=== PATIENT | male | born 1940 | race Caucasian/White ===

== ENCOUNTER 2017-05-20 13:21 | Emergency (ER) | payer MEDICARE, OTHER ==
[~2017-05-20] VITALS: Ht 182.9 cm; Wt 147.4 kg
[~2017-05-20 13:21] MED LIST: FLOMAX0.4 MG PO; GLIMEPIRIDE2 MG PO; LISINOPRIL-HCT1 EACH PO; LOVASTATIN40 MG PO; METFORMIN PO; NOVOLIN SQ; NYSTATIN1 EAC1 TOP
--- OUTSIDE RECORDS SUMMARY | 2017-05-20 13:24 | XMS REPORT | Clinical Summary ---
Author Author [facility] Organization [facility] Address Unknown Phone Unavailable Care Team Providers Care Supervisor [employer] Name Role Phone Mayuri Balbuena MD PCP Allergies Active Allergy Reactions Severity Noted Date Comments Meperidine Rash Low 05/13/2016 Cephalexin Rash Low 05/13/2016 Pentazocine Lactate Rash Low 05/13/2016 Current Medications Prescription Sig. Disp. Refills Start End Date Status Date glimepiride (AMARYL) 4 MG Take 4 mg by mouth 2 Active tablet (two) times a day. LISINOPRIL-HCTZ 20-12.5 1 tablet daily. Active MG COMBO DOSE lovastatin (MEVACOR) 10 Take 40 mg by mouth Active MG tablet nightly. esomeprazole (NexIUM) 20 Take 20 mg by mouth daily Active MG capsule before breakfast. tamsulosin (FLOMAX) 0.4 Take 0.4 mg by mouth Active mg capsule,extended daily. release 24hr Active Problems No known active problems Family History Medical History Relation Name Comments Melanoma Father Leukemia Mother Relation Name Status Comments Father Mother Social History Tobacco Use Types Packs/Day Years Used Date Never Smoker Alcohol Use Drinks/Week oz/Week Comments No Sex Assigned at Date Recorded Not on file Last Filed Vital Signs Not on file Plan of Treatment Health Maintenance Due Date Last Done Comments COLONOSCOPY 11/27/1991 ZOSTER VACCINE 2001 PNEUMOCOCCAL 2006 POLYSACCHARIDE VACCINE AGE 65 AND OVER PNEUMOCOCCAL-13 2006 INFLUENZA VACCINE 09/28/2016 Implants Implanted Type Area Adult Nurse Practitioner Device Expiration Model / Identifier Date Serial / Lot Device Vasclr Clsr Baln Cath 10ml Cardiovasc Right: CARDINAL 2017 [id number] / Lkng Syr 6fr 7fr Mynxgrip - ular Foot [facility] / [id number] Implants [id number] Implanted: Qty: 1 on 05/17/2016 by Hector Pagan MD [employer] [facility] Floseal 10ml W/ Humn Human Left: POTTER 05/28/2017 [id number] / F2 - [id number] Tissue Groin BIOSCIENCE / Implanted: Qty: 1 on 05/17/2016 Implants [id number] Microsphere Emblztn Promoting Surgical Right: [facility] 2017 [id number] / Efficacy 300-500um Embosphere - Implants; [employer] / [id number] Expanders; [id number] Implanted: Qty: 1 on 05/17/2016 by Extenders; Hector Pagan MD Surgical Wires Coil Emblztn Ngocdo Pltnm 0.035in Vascular Right: COOK PERIPHERAL [id number] / 8.2cm 8x5mm Strl - [id number] Coil Foot INTERVENTION / Implanted: Qty: 1 on 05/17/2016 by [id number] Hector Pagan MD Results Not on fileafter 05/19/2016 Insurance Payer Benefit Subscriber ID Type Phone Address Plan / Group MEDICARE [employer] MEDICARE xxxxxxxxxx Medicare [facility] xxxxxxxxx HMO/PPO THCARE CHOICE/CHO ICE +
[2017-05-20] MEDS ORDERED: SODIUM CHLORIDE 0.9% 1000ML 1,000 ML IV STA (14:11)
[2017-05-20] MEDS ORDERED: LEVOFLOXACIN 500MG/D5W 100ML 100 ML IV STA (14:11)
[2017-05-20] MEDS ORDERED: VANCOMYCIN 1GM/NS 250 ML 250 ML IV STA (14:11)
[2017-05-20] MEDS ORDERED: FAMOTIDINE 20 MG/2 ML VIAL IV STA (14:11)
[2017-05-20] MEDS ORDERED: TETANUS/DIPHTHERIA TOX ADULT 0.5 ML SYR IM ONE (14:15)
[2017-05-20 14:39] LABS: BASOPHILS # (AUTO) 0.1 (0.0-0.1); BASOPHILS % 0.8 % (0.0-1.0); EOSINOPHILS # (AUTO) 0.2 (0.0-0.4); EOSINOPHILS % 2.3 % (0.0-6.0); HEMATOCRIT 39.7 % (38.2-49.6); HEMOGLOBIN 13.7 g/dL (14.0-18.0); LYMPHOCYTES # (AUTO) 0.8 (1.0-3.2); LYMPHOCYTES % 10.6 % (18.0-39.1); MEAN CORPUSCULAR HEMOGLOBIN 29.1 pg (28-32); MEAN CORPUSCULAR HGB CONC 34.5 g/dL (31-35); MEAN CORPUSCULAR VOLUME 84.3 fL (81-99); MONOCYTES # (AUTO) 0.9 (0.2-0.8); MONOCYTES % 10.9 % (4.4-11.3); NEUTROPHILS % 75.1 % (38.7-80.0); PLATELET COUNT 201 x10e3/uL (140-360); RED BLOOD COUNT 4.71 x10e6/uL (4.3-5.7); RED CELL DISTRIBUTION WIDTH 13.4 % (11.7-14.4)
[2017-05-20 14:50] LABS: INR 0.99; PROTHROMBIN TIME 12.3 seconds (11.9-14.5)
[2017-05-20 14:51] LABS: PARTIAL THROMBOPLASTIN TIME 36.5 seconds (23.8-35.5)
[2017-05-20 14:57] LABS: ALANINE AMINOTRANSFERASE 19 IU/L (0-55); ALBUMIN 3.7 g/dL (3.5-5.0); ALBUMIN/GLOBULIN RATIO 1.2 (0.8-2.0); ALKALINE PHOSPHATASE 41 IU/L (40-150); ANION GAP 11.1 mmol/L (8-16); BLOOD UREA NITROGEN 15 mg/dL (7-26); BUN/CREATININE RATIO 14 (6-25); CALCIUM 9.1 mg/dL (8.4-10.2); CARBON DIOXIDE 27 mmol/L (22-29); CHLORIDE 101 mmol/L (98-107); CREATININE, SERUM 1.04 mg/dL (0.72-1.25); EST GLOMERULAR FILTRATION RATE > 60 ML/MIN (60-); GLUCOSE 202 mg/dL (74-118); POTASSIUM 4.1 mmol/L (3.5-5.1); SODIUM 135 mmol/L (136-145)
[2017-05-20 14:59] LABS: CREATINE KINASE 72 IU/L (30-200)
--- NOTE | 2017-05-20 15:02 | Diagnostic Imaging Report ---
PROCEDURE: A single AP view of the chest. COMPARISON: None. INDICATIONS: SECOND TOE TURNING BLUE FINDINGS: Lines/tubes: None. Lungs: The lungs are well inflated. Linear atelectasis or scarring in the lung bases. There is no evidence of pneumonia or pulmonary edema. Pleura: There is no pleural effusion or pneumothorax. Heart and mediastinum: The heart and the mediastinum are unremarkable. Bones: No acute bony abnormality. IMPRESSION: No acute cardiopulmonary disease. Dictated by: Akbar Avendaño M.D. on 05/20/2017 at 15:02 Electronically approved by: Akbar Avendaño M.D. on 05/20/2017 at 15:02
--- NOTE | 2017-05-20 15:05 | Diagnostic Imaging Report ---
PROCEDURE:X-RAY LEFT FOOT, COMPLETE COMPARISON:None. INDICATIONS:SECOND TOE TURNING BLUE FINDINGS: There are no fractures, dislocations, lytic or blastic lesions. Punctate calcific densities medial to the first metatarsal phalangeal joint with adjacent well corticated cortical irregularity may be related to gout. Plantar calcaneal spur. Scattered degenerative changes of the feet. The bones are well-mineralized. Diffuse vascular calcifications. CONCLUSION: 1. No acute bony abnormalities. 2. Punctate calcific densities medial to the first MTP joint with adjacent cortical irregularities may be related to gout. Clinical correlation recommended. 3. Diffuse vascular calcifications. Dictated by: Akbar Avendaño M.D. on 05/20/2017 at 15:05 Electronically approved by: Akbar Avendaño M.D. on 05/20/2017 at 15:05
[2017-05-20 15:38] LABS: BILIRUBIN,URINE NEGATIVE (NEGATIVE); CLARITY,URINE CLEAR (CLEAR); COLOR,URINE YELLOW (YELLOW); KETONES,URINE NEGATIVE (NEGATIVE); LEUKOCYTE ESTERASE ,URINE NEGATIVE (NEGATIVE); NITRITE,URINE NEGATIVE (NEGATIVE); PROTEIN,URINE DIPSTICK NEGATIVE (NEGATIVE); URINE UROBILINOGEN 0.2 mg/dL (0.2 - 1)
[2017-05-20 15:49] LABS: EPITHELIAL CELLS,URINE RARE /LPF; RBC,URINE 0-5 /HPF (0-5); WBC,URINE (MAN) 0-5 /HPF (0-5)
[2017-05-20 15:50] LABS: MUCUS,URINE MANY (RARE)
[2017-05-20] MEDS ORDERED: TRIMETHOPRIM/SULFAMETHOXAZOLE 160-800 MG TAB PO ONE (16:00)
== END 2017-05-20 16:20 | disposition home or self-care (01) ==
LOC: ER 13:21
DX: S90.122A Contusion of left lesser toe(s) without damage to nail, initial encounter (principal); E11.65 Type 2 diabetes mellitus with hyperglycemia
CPT/HCPCS: 36415; 71045; 80053; 81001; 82550; 82553; 83605; 83735; 84484; 85025; 85610; 85651; 85730; 87040; 90714; 93005; 99284; J1956; J3370; J7030

== ENCOUNTER 2018-12-26 11:59 | Emergency (ER) | payer MEDICARE, OTHER ==
[~2018-12-26] VITALS: Ht 182.9 cm; Wt 147.4 kg
[~2018-12-26 11:59] MED LIST changes: +HUMULIN N100 UNITS/ SC; +NEXIUM40 M1 PO
[2018-12-26 14:11] LABS: BILIRUBIN,URINE SMALL (NEGATIVE); CLARITY,URINE CLOUDY (CLEAR); COLOR,URINE YELLOW (YELLOW); KETONES,URINE NEGATIVE (NEGATIVE); LEUKOCYTE ESTERASE ,URINE SMALL (NEGATIVE); NITRITE,URINE NEGATIVE (NEGATIVE); PROTEIN,URINE DIPSTICK 2+ (NEGATIVE); URINE UROBILINOGEN 0.2 mg/dL (0.2 - 1)
[2018-12-26 14:33] LABS: BACTERIA,URINE FEW /HPF; RBC,URINE 21-50 /HPF (0-5); WBC,URINE (MAN) 0-5 /HPF (0-5)
[2018-12-26] MEDS ORDERED: LEVAQUIN500 MG PO (15:11)
== END 2018-12-26 15:43 | disposition home or self-care (01) ==
LOC: ER 11:59
DX: R33.9 Retention of urine, unspecified (principal); N39.0 Urinary tract infection, site not specified; I10 Essential (primary) hypertension; E11.9 Type 2 diabetes mellitus without complications; E78.5 Hyperlipidemia, unspecified; K21.9 Gastro-esophageal reflux disease without esophagitis
CPT/HCPCS: 51700; 81001; 87086; 99282

== ENCOUNTER → 2019-01-12 | Outpatient (CLI) | payer MEDICARE, OTHER ==
[~2019-01-12] MED LIST changes: +IOPAMIDOL 370 MG/ML 200 ML INFUS..BTL INJ ONE; +LEVAQUIN500 MG PO; +SODIUM CHLORIDE 0.9% 50ML 50 ML ONE
[2019-01-12 09:29] LABS: BLOOD UREA NITROGEN 9 mg/dL (7-26); BUN/CREATININE RATIO 10 (6-25); CREATININE, SERUM 0.91 mg/dL (0.72-1.25); EST GLOMERULAR FILTRATION RATE > 60 ML/MIN (60-)
--- NOTE | 2019-01-12 10:43 | Diagnostic Imaging Report ---
EXAM: CT Abdomen and Pelvis WITH intravenous contrast INDICATION: Prostate cancer COMPARISON: None. TECHNIQUE: Abdomen and pelvis were scanned utilizing a multidetector helical scanner from the lung base to the pubic symphysis after administration of IV contrast. Coronal and sagittal reformations were obtained. Routine protocol was performed. Scan was performed during portal venous phase. IV CONTRAST: 100mL of Isovue 370 ORAL CONTRAST: Water RADIATION DOSE: Total DLP: 1403.8 mGy*cm Dose modulation, iterative reconstruction, and/or weight based adjustment of the mA/kV was utilized to reduce the radiation dose to as low as reasonably achievable. FINDINGS: LOWER THORAX: No focal lung base consolidation. 6 mm right lower lobe pulmonary nodule (series 2 image 17). Bibasilar subpleural nodularity, likely reflecting mild bibasilar dependent subsegmental atelectasis. Atherosclerotic coronary artery calcifications. HEPATOBILIARY: Tiny subcentimeter hypodensities at the hepatic dome are too small to adequately characterize. No other focal liver lesion. No biliary ductal dilation. Gallbladder appears unremarkable. SPLEEN: No splenomegaly. PANCREAS: No focal masses or ductal dilatation. ADRENALS: No adrenal nodules. KIDNEYS/URETERS: No hydronephrosis, stones, or solid mass lesions. Simple left renal cysts measure up to 2.2 cm. PELVIC ORGANS/BLADDER: Status post TURP. Prostate measures up to 6.2 cm diameter. PERITONEUM / RETROPERITONEUM: No free air or fluid. LYMPH NODES: No lymphadenopathy. VESSELS: Moderate atherosclerotic calcifications of the nonaneurysmal abdominal aorta and major branches. GI TRACT: No abnormal bowel thickening. No bowel obstruction. Normal appendix. BONES AND SOFT TISSUES: No acute osseous injury. Diffuse osteopenia. Moderate multilevel degenerative changes of the visualized spine. No suspicious lytic or blastic lesions. IMPRESSION: Prostatomegaly. Status post TURP. 6 mm right lower lobe pulmonary nodule. Recommend dedicated chest CT for assessment for further pulmonary nodules given history of malignancy. Atherosclerotic arterial calcifications including of the coronary arteries. Signed by: Lul Navarro MD on 01/12/2019 10:40 AM
--- NOTE | 2019-01-12 19:57 | Diagnostic Imaging Report ---
Bone Scan, delayed phase INDICATION: C61: Malignant neoplasm of prostate. Staging evaluation. COMPARISON: CT abdo/pelvis 01/12/2019 REPORT: Approximately 3 hours following intravenous administration of 27.5 mCi of Tc-99m MDP, delayed total body images in the anterior and posterior projections and selected spot images were obtained. Degenerative changes are noted in the mid to lower thoracic spine, knees and left ankle. Otherwise, distribution of tracer activity is unremarkable throughout the skeletal system. No abnormal accumulation of tracer is seen in the soft tissues or urinary tract. IMPRESSION: No scan evidence of metastatic bone disease. Signed by: Dr. Aliza Rushing M.D. on 01/12/2019 7:53 PM
== END ==
LOC: NM 07:57
PROVIDERS: ATTEND Urology
DX: C61 Malignant neoplasm of prostate (principal)
CPT/HCPCS: 36415; 74177; 78306; 82565; 84520; A9503; Q9967

== ENCOUNTER 2019-04-25 06:04 | Inpatient (IN) | payer MEDICARE, OTHER ==
[2019-04-19 11:08] LABS: BASOPHILS # (AUTO) 0.1 (0.0-0.1); BASOPHILS % 0.7 % (0.0-1.0); EOSINOPHILS # (AUTO) 0.1 (0.0-0.4); EOSINOPHILS % 1.3 % (0.0-6.0); HEMATOCRIT 39.2 % (38.2-49.6); HEMOGLOBIN 13.2 g/dL (14.0-18.0); LYMPHOCYTES # (AUTO) 0.8 (1.0-3.2); LYMPHOCYTES % 12.2 % (18.0-39.1); MEAN CORPUSCULAR HGB CONC 33.7 g/dL (31-35); MEAN CORPUSCULAR VOLUME 86.2 fL (81-99); MONOCYTES # (AUTO) 0.7 (0.2-0.8); NEUTROPHILS # (AUTO) 5.2 (2.1-6.9); NEUTROPHILS % 75.5 % (38.7-80.0); PLATELET COUNT 213 x10e3/uL (140-360); RED BLOOD COUNT 4.55 x10e6/uL (4.3-5.7); RED CELL DISTRIBUTION WIDTH 13.1 % (11.7-14.4)
[2019-04-19 11:23] LABS: ANION GAP 12.1 mmol/L (8-16); BLOOD UREA NITROGEN 13 mg/dL (7-26); BUN/CREATININE RATIO 14 (6-25); CALCIUM 9.1 mg/dL (8.4-10.2); CARBON DIOXIDE 28 mmol/L (22-29); CHLORIDE 103 mmol/L (98-107); CREATININE, SERUM 0.94 mg/dL (0.72-1.25); EST GLOMERULAR FILTRATION RATE > 60 ML/MIN (60-); GLUCOSE 203 mg/dL (74-118); POTASSIUM 4.1 mmol/L (3.5-5.1); SODIUM 139 mmol/L (136-145)
--- NOTE | 2019-04-19 11:43 | Diagnostic Imaging Report ---
Exam: PA and lateral chest radiograph Clinical history preoperative clearance Findings: There is no evidence of pulmonary consolidation, pleural effusion, or pneumothorax. The cardiac size is within normal limits. The regional osseous structures are unremarkable. Signed by: Dr. Darren Vee MD on 04/19/2019 11:41 AM
[~2019-04-25] VITALS: Ht 180.3 cm; Wt 137.4 kg
[~2019-04-25 06:04] MED LIST changes: -IOPAMIDOL 370 MG/ML 200 ML INFUS..BTL INJ ONE; +OMEGA-3100 MG PO; -SODIUM CHLORIDE 0.9% 50ML 50 ML ONE
[2019-04-25] MEDS ORDERED: GENTAMICIN 80MG/NS 100 ML 200 ML IV ONE (06:27)
[2019-04-25] MEDS ORDERED: VANCOMYCIN 1GM/NS 250 ML 250 ML ONE (06:28)
[2019-04-25] MEDS ORDERED: IOPAMIDOL 300MG/ML 50ML INFUS..BTL IV ONE (06:59)
[2019-04-25] MEDS ORDERED: B&O 60MG R/S 60 MG SUPP PR ONE (06:59)
[2019-04-25] MEDS ORDERED: FENTANYL CITRATE/PF 100MCG/2 ML INJ ONE ×2 (08:55→20:02)
[2019-04-25] MEDS ORDERED: ACETAMINOPHEN 1000 MG/100 ML IV PRN (09:15)
[2019-04-25] MEDS ORDERED: DIPHENHYDRAMINE HCL 25 MG CAP PO PRN (09:15)
[2019-04-25] MEDS ORDERED: B&O 60MG R/S 60 MG SUPP PR PRN (09:15)
[2019-04-25] MEDS ORDERED: ACETAMINOPHEN/CODEINE 300MG - 30MG TAB PO PRN (09:15)
[2019-04-25] MEDS ORDERED: ONDANSETRON HCL INJ 2MG/ML 2ML 2 MG/ML VIAL IV PRN (09:15)
[2019-04-25 09:54] LABS: BASOPHILS % 0.6 % (0.0-1.0); EOSINOPHILS # (AUTO) 0.1 (0.0-0.4); EOSINOPHILS % 1.7 % (0.0-6.0); HEMATOCRIT 38.7 % (38.2-49.6); HEMOGLOBIN 13.2 g/dL (14.0-18.0); LYMPHOCYTES # (AUTO) 0.5 (1.0-3.2); LYMPHOCYTES % 9.6 % (18.0-39.1); MEAN CORPUSCULAR HEMOGLOBIN 29.7 pg (28-32); MEAN CORPUSCULAR HGB CONC 34.1 g/dL (31-35); MEAN CORPUSCULAR VOLUME 87.2 fL (81-99); MONOCYTES # (AUTO) 0.4 (0.2-0.8); MONOCYTES % 6.6 % (4.4-11.3); NEUTROPHILS # (AUTO) 4.3 (2.1-6.9); NEUTROPHILS % 81.1 % (38.7-80.0); PLATELET COUNT 173 x10e3/uL (140-360); RED BLOOD COUNT 4.44 x10e6/uL (4.3-5.7); RED CELL DISTRIBUTION WIDTH 13.3 % (11.7-14.4)
[2019-04-25 10:11] LABS: BLOOD UREA NITROGEN 13 mg/dL (7-26); BUN/CREATININE RATIO 15 (6-25); CALCIUM 8.4 mg/dL (8.4-10.2); CARBON DIOXIDE 26 mmol/L (22-29); CHLORIDE 108 mmol/L (98-107); CREATININE, SERUM 0.84 mg/dL (0.72-1.25); EST GLOMERULAR FILTRATION RATE > 60 ML/MIN (60-); GLUCOSE 135 mg/dL (74-118); SODIUM 143 mmol/L (136-145)
--- NOTE | 2019-04-25 11:18 | NUR ---
RECEIVED PATIENT FROM PACU. PATIENT A/O X3, EVEN RESPIRATIONS ON 2LNC. LUNG SOUNDS CLEAR. BOWEL SOUNDS PRESENT. BENNETT IN PLACE WITH CBI, URINE PALE STRAW. NORBERTO HOSE AND SCD'S IN PLACE. LEFT FA 20 GAUGE IV WITH IVF @ 100 CC/HR. PATIENT STATES PAIN IS 2/10 IN LOWER ABDOMEN. EDUCATED PATIENT ON PAIN MEDICATION AVAILABLE. [facility] BED LOW, WHEELS LOCKED, SIDE RAILS X2, CALL LIGHT IN REACH WILL CONTINUE TO MONITOR PATIENT.
[2019-04-25 11:30] VITALS: BP 166/72
[2019-04-25] MEDS ORDERED: SOD CHL 0.45%/POT CHL 20MEQ 1,000 ML IV SCH (12:00)
[2019-04-25] MEDS: PHENAZOPYRIDINE HCL 100 MG TAB PO SCH ×2 (12:14→17:05)
[2019-04-25 12:20] VITALS: BP 166/72
[2019-04-25 12:22] VITALS: BP 166/72
--- NOTE | 2019-04-25 14:36 | NUR ---
SPOKE WITH DR. ANSARI OK TO RESUME HOME MEDICATIONS. NOTIFIED DR. ANSARI THAT PATIENT WANTS TO TAKE HIS OWN INSULIN.
[2019-04-25 16:00] VITALS: BP 122/58
--- NOTE | 2019-04-25 16:23 | Operative Report ---
DATE OF PROCEDURE: 04/25/2019 SURGEON: Zafar Farley MD PREOPERATIVE DIAGNOSES: 1. Obstructive benign prostatic hyperplasia. 2. Secondary phimosis. 3. Urinary tract infections. POSTOPERATIVE DIAGNOSES: 1. Obstructive benign prostatic hyperplasia. 2. Secondary phimosis. 3. Urinary tract infections. 4. Distal urethral stricture. 5. Small filling defect in left mid pole calyx. OPERATIONS PERFORMED: 1. Manipulation of penile skin (separate procedure performed for the secondary phimosis in order to expose the entire glans penis). 2. Cystourethroscopy with calibration and dilation of distal urethral stricture (separate procedure performed for the diagnosis of stricture). 3. Cystourethroscopy with bilateral ureteral catheterization and retrograde ureteropyelography (separate procedure performed for the urinary tract infections). 4. Cystourethroscopy with transurethral resection of the prostate utilizing the PlasmaBand electrode (separate procedure performed for the obstructive benign prostatic hyperplasia). ANESTHESIA: General. COMPLICATIONS: None. CLINICAL SUMMARY: Jayesh Villfauerte is a 78-year-old man, who has the above preoperative diagnoses. The patient underwent a circumcision for severe phimosis and had a pathology result of balanitis xerotica obliterans. The patient has scarring of the tip of his penis and scarring of the previous circumcision incision, which is now healed. The patient's morbid obesity also pushes his penile shaft skin distally further exacerbating situation with the folding of the distal penile skin over the glans penis. The patient was diagnosed with prostate cancer and was given his first 6-month shot of Lupron in anticipation of this procedure. The plan is in 6 months following this procedure to proceed with radiotherapy for definitive management of his prostate cancer. The patient is aware of the risks of bleeding, infection, injury to adjacent structures, incontinence, impotence, retrograde ejaculation, need for additional procedures and elected to proceed. OPERATIVE PROCEDURE IN DETAIL: Informed consent was verified. Jayesh Villafuerte was properly identified, taken to the operating room, placed on the cystoscopy table in supine position. Anesthesia was uneventfully begun. The patient was then carefully gently repositioned in dorsal lithotomy position with all pressure points well padded. His genitalia were examined. The distal penile skin was folded to the midpoint of the glans penis. This resulted in secondary phimosis. Rather vigorous manipulation was required in order to flip this folded skin proximally, so that the entire corner of the glans penis could be exposed. The circumcision incision was intact, but there was definite scarring in the subcutaneous tissues under the incision and just proximal to the incision caused most likely by this folding as a result of the patient's morbid obesity pushing the skin forward. The patient's genitalia were prepared and draped in the usual sterile fashion. The 22.5-Burundian cystoscope sheath with a visual obturator in place was attempted to be placed in the patient's urethral meatus, the patient's distal urethra. Distal several centimeters urethra was obstructed. They were calibrated to approximately 16-Burundian in size and dilated to 30-Burundian in size with female sounds. We then easily able to place the cystoscope sheath into the patient's urethra. It was guided down the otherwise unremarkable urethra through the bulbar wide caliber band that is probably not clinically significant through normal sphincteric region through the prostate bed, which was significant for bilobar prostatic hypertrophy with visual obstruction. We entered the patient's bladder. Panendoscopy revealed no suspicious lesions. No stones. Grade 2 trabeculations were noted. An 8-Burundian catheter was used to cannulate each ureter and retrograde ureteropyelograms were performed. Interpretation of retrograde ureteropyelography contrast was instilled in retrograde fashion bilaterally. Ureteral tortuosity was present bilaterally as well as some ureteral spasms. There was no hydronephrosis. There were no suspicious lesions. There was a small filling defect in the left mid pole calyx and in the cephalad most mid pole calyx on the left hand side. Nevertheless, there was no hydronephrosis and unobstructed drainage was observed bilaterally fluoroscopically. The resectoscope was atraumatically placed with the obturator and we utilized the PlasmaBand electrode to resect the prostate from the bladder neck tube, but never passed the verumontanum and down the surgical capsule. Pinpoint electrocautery was utilized to achieve hemostasis. All chips were evacuated and verified visually. The 24-Burundian Villalobos catheter was then placed. It was placed on continuous irrigation with completely clear efflux. A belladonna and opium suppository were placed revealing a 40 g prostate that is smooth, non-fluctuant without any nodules. The patient was then uneventfully reversed from anesthesia and taken to recovery room in stable condition. There were no complications to the procedure. He tolerated the procedure well. We will admit the patient due to his diabetes, his urinary tract infections, the need for Villalobos catheter, his morbid obesity, and involved the patient's mgmt consultant in managing his medical problems. We will of course follow the patient up on an ongoing basis. Zafar MD Miguelito [place]/MODL /[id number] cc: Haile Balbuena MD
[2019-04-25] MEDS: DOCUSATE SODIUM 100 MG CAP PO SCH (16:36)
--- NOTE | 2019-04-25 17:00 | NUR ---
PATIENTS BLOOD SUGAR 254. PATIENT GAVE HIMSELF 75 UNITS OF INSULIN.
[2019-04-25] MEDS ORDERED: DEXAMETHASONE SOD PHOS INJ 4 MG/ML VIAL ONE (18:37)
[2019-04-25] MEDS ORDERED: ROCURONIUM BROMIDE 10 MG/ML 5ML VIAL ONE (18:37)
[2019-04-25] MEDS ORDERED: PROPOFOL IV EMULSION 10 MG/ML 20 ML VIAL ONE (18:37)
[2019-04-25] MEDS ORDERED: ONDANSETRON HCL INJ 2MG/ML 2ML 2 MG/ML VIAL ONE (18:37)
[2019-04-25] MEDS ORDERED: SUCCINYLCHOLINE CHLORIDE 20 MG/ML 10ML VIAL ONE (18:37)
[2019-04-25] MEDS ORDERED: SEVOFLURANE INHAL SOLN 250 ML PEN BTL ONE (18:37)
[2019-04-25] MEDS ORDERED: LIDOCAINE HCL 2% LOCAL INJ 5 ML SDV VIAL INJ ONE (18:37)
--- NOTE | 2019-04-25 19:15 | NUR ---
patient received awake, alert, lying quietly in bed. no c/o pain noted. cbi continues without difficulty. urine clear yellow at this time. iv site to left forearm swollen. ivf stopped until another iv is placed. pm assessment complete. call ram placed within reach. patient instructed to call for assistance when needed.
--- NOTE | 2019-04-25 20:00 | NUR ---
new iv #20 gauge placed to the left forearm x 1 stick. ivf resumed and infusing without difficulty.
[2019-04-25] MEDS ORDERED: SIMVASTATIN 40 MG TAB PO SCH (21:00)
[2019-04-25] MEDS ORDERED: SIMVASTATIN 20 MG TAB PO SCH (21:00)
[2019-04-25 21:13] VITALS: BP 143/65
[2019-04-25 21:32] VITALS: BP 143/65
[2019-04-25] MEDS ORDERED: NEBIVOLOL 10 MG TAB PO ONE (23:30)
[2019-04-25] MEDS ORDERED: HYDRALAZINE HCL 25 MG TAB PO PRN (23:30)
[2019-04-26] MEDS ORDERED: HYDRALAZINE HCL 25 MG TAB PO PRN (00:45)
[2019-04-26 01:35] VITALS: BP 136/64
--- NOTE | 2019-04-26 03:00 | NUR ---
cbi continues without difficulty. no c/o pain noted.
[2019-04-26 05:26] VITALS: BP 137/68
[2019-04-26 06:19] LABS: BASOPHILS % 0.2 % (0.0-1.0); EOSINOPHILS # (AUTO) 0.1 (0.0-0.4); EOSINOPHILS % 0.9 % (0.0-6.0); HEMATOCRIT 36.4 % (38.2-49.6); HEMOGLOBIN 11.9 g/dL (14.0-18.0); LYMPHOCYTES # (AUTO) 1.1 (1.0-3.2); LYMPHOCYTES % 12.5 % (18.0-39.1); MEAN CORPUSCULAR HGB CONC 32.7 g/dL (31-35); MEAN CORPUSCULAR VOLUME 88.6 fL (81-99); MONOCYTES # (AUTO) 0.9 (0.2-0.8); MONOCYTES % 10.8 % (4.4-11.3); NEUTROPHILS # (AUTO) 6.5 (2.1-6.9); NEUTROPHILS % 75.1 % (38.7-80.0); PLATELET COUNT 181 x10e3/uL (140-360); RED BLOOD COUNT 4.11 x10e6/uL (4.3-5.7); RED CELL DISTRIBUTION WIDTH 13.3 % (11.7-14.4)
[2019-04-26 06:47] LABS: ANION GAP 9.7 mmol/L (8-16); BLOOD UREA NITROGEN 11 mg/dL (7-26); BUN/CREATININE RATIO 14 (6-25); CALCIUM 8.5 mg/dL (8.4-10.2); CARBON DIOXIDE 27 mmol/L (22-29); CHLORIDE 103 mmol/L (98-107); CREATININE, SERUM 0.78 mg/dL (0.72-1.25); EST GLOMERULAR FILTRATION RATE > 60 ML/MIN (60-); GLUCOSE 105 mg/dL (74-118); POTASSIUM 3.7 mmol/L (3.5-5.1); SODIUM 136 mmol/L (136-145)
[2019-04-26] MEDS ORDERED: PANTOPRAZOLE SOD 40 MG TABEC PO SCH (07:30)
[2019-04-26 07:40] VITALS: BP 137/63
[2019-04-26] MEDS ORDERED: GLIMEPIRIDE 2 MG TAB PO SCH (08:00)
--- NOTE | 2019-04-26 08:00 | NUR ---
RECEIVED PATIENT RESTING IN BED NO S/S OF DISTRESS. BED LOW, WHEELS LOCKED, SIDE RAILS X2. CALL LIGHT IN REACH WILL CONTINUE TO MONITOR PATIENT.
[2019-04-26 08:37] VITALS: BP 137/63
[2019-04-26] MEDS: PHENAZOPYRIDINE HCL 100 MG TAB PO SCH (08:42)
[2019-04-26] MEDS: DOCUSATE SODIUM 100 MG CAP PO SCH (08:42)
[2019-04-26] MEDS ORDERED: HYDROCHLOROTHIAZIDE 25 MG TAB PO SCH (09:00)
[2019-04-26] MEDS ORDERED: NON-FORMULARY MEDICATION (Esomeprazole Magnesium (Nexium) 40 MG) PO SCH (09:00)
[2019-04-26] MEDS ORDERED: NEBIVOLOL 10 MG TAB PO SCH (09:00)
[2019-04-26] MEDS ORDERED: TAMSULOSIN HCL 0.4 MG CAP PO SCH (09:00)
[2019-04-26] MEDS ORDERED: LISINOPRIL 20 MG TAB PO SCH (09:00)
[2019-04-26] MEDS ORDERED: ULTRAM50 MG PO (09:57)
[2019-04-26] MEDS ORDERED: LEVAQUIN500 MG PO (09:59)
--- NOTE | 2019-04-26 10:50 | NUR ---
REMOVED PATIENTS IV. CATHETER TIP INTACT AND PRESSURE DRESSING APPLIED.
[2019-04-26 11:00] VITALS: BP 117/62
--- NOTE | 2019-04-26 12:25 | NUR ---
PATIENT DISCHARGED FROM FACILITY. PATIENT GATHERED ALL PERSONAL BELONGINGS, DISCHARGE INSTRUCTIONS AND FOLLOW UP INFORMATION. PATIENT LEFT UNIT IN WHEELCHAIR AND WENT HOME VIA PRIVATE AUTO.
--- NOTE | 2019-04-26 16:27 | NUR ---
ORDERS FOR HOME HEALTH CARE CHOICE LETTER SIGNED FOR [facility] (PT HAD THEM 3 YEARS AGO AND WAS PLEASED) COPY OF CHOICE LETTER TO PT IN CARE TRANSITIONS FOLDER IMM EXPLAINED TO PT, SIGNED BY PT AND PLACED IN CHART COPY OF IMM TO PT IN CARE TRANSITIONS FOLDER CALLED AND FAXED TO [facility] PH: [phone] FAX: [phone] SPOKE WITH DEJA HUNTLEY REC'D
--- NOTE | 2019-04-27 04:28 | Discharge Summary ---
COST REPORT CLERK: Zafar Farley MD FINAL DIAGNOSIS: 1. Obstructive benign prostatic hyperplasia. 2. Secondary phimosis. 3. Recurrent urinary tract infection. 4. The patient is status post cystourethroscopy and TURP procedures with also manipulation of the penile skin, separation procedures performed by Dr. Zafar Farley due to secondary phimosis in order to expose the entire glans penis. SUMMARY: The patient is a pleasant 78-year-old male, patient of mine, who is status post procedures done by Dr. Zafar Farley on April 25, 2019. The patient had multiple chronic medical problems and now status post procedure done by Dr. Zafar Farley. The patient has manipulation of the penile skin due to secondary phimosis and also the patient underwent TURP procedure. Please review the operative note. The patient is otherwise stable. Slight hematuria, but overall stable. Good urine output. The patient had no nausea or vomiting. He tolerated all his diet today. He is back to his baseline. Blood sugar stabilized. He used his own insulin. Overall, the patient is stable. Dr. Farley has ordered for home health for the patient to go home. Villalobos is to be removed on Tuesday. He has instruction for the penile care along with the Villalobos care as well. The patient will follow up with Dr. Zafar Farley per his instruction and for myself. He should follow up the latest Tuesday next week, and we will repeat lab work to make sure all his electrolytes are within order. The patient is otherwise stable. He is comfortable at this time. He will be discharged home today. Resume home medications. All other instructions are given. MD TABITHA Garcia/MODL /[id number]
== END 2019-04-26 12:25 | disposition home health service (06) | DRG 709 ==
LOC: OR 06:04 → PACU V 09:05 → MED/SURG 11:23
PROVIDERS: ADMIT Urology; ATTEND Urology
PROC: 0T7D8ZZ Dilation of Urethra, Via Natural or Artificial Opening Endoscopic (ICD-10-PCS; 2019-04-25)
PROC: BT141ZZ Fluoroscopy of Kidneys, Ureters and Bladder using Low Osmolar Contrast (ICD-10-PCS; 2019-04-25)
PROC: 0V508ZZ Destruction of Prostate, Via Natural or Artificial Opening Endoscopic (ICD-10-PCS; principal; 2019-04-25 08:00)
PROC: 0VNSXZZ Release Penis, External Approach (ICD-10-PCS; 2019-04-25 08:00)
DX: N40.1 Benign prostatic hyperplasia with lower urinary tract symptoms (principal); N13.8 Other obstructive and reflux uropathy; N39.0 Urinary tract infection, site not specified; Z68.41 Body mass index [BMI] 40.0-44.9, adult; N47.1 Phimosis; E11.9 Type 2 diabetes mellitus without complications; I10 Essential (primary) hypertension; E78.5 Hyperlipidemia, unspecified; E66.9 Obesity, unspecified; K21.9 Gastro-esophageal reflux disease without esophagitis; M19.90 Unspecified osteoarthritis, unspecified site; N35.919 Unspecified urethral stricture, male, unspecified site; N48.0 Leukoplakia of penis; C61 Malignant neoplasm of prostate; Z79.4 Long term (current) use of insulin
CPT/HCPCS: 36415; 71046; 74420; 80048; 82948; 83735; 85025; 88305; 93005; C1758; J0330; J1100; J1580; J2001; J2405; J3010; J3370

== ENCOUNTER 2019-12-03 19:38 | Inpatient (IN) | payer MEDICARE, OTHER ==
[~2019-12-03] VITALS: Ht 180.3 cm; Wt 127.0 kg
[~2019-12-03 19:38] MED LIST changes: +ULTRAM50 MG PO
[2019-12-03] MEDS ORDERED: HYDROCODONE/APAP 5MG-325MG TAB PO ONE (20:00)
[2019-12-03] MEDS ORDERED: CLONIDINE HCL 0.1 MG TAB PO ONE (23:15)
[2019-12-03] MEDS ORDERED: HYDRALAZINE HCL 20 MG/ML VIAL IV PRN (23:30)
[2019-12-03] MEDS ORDERED: SODIUM CHLORIDE 0.9% 1000ML 1,000 ML IV SCH (23:30)
[2019-12-03] MEDS ORDERED: MORPHINE SULFATE INJ 4 MG/ML INJ 1ML IV PRN (23:30)
[2019-12-03] MEDS ORDERED: ONDANSETRON HCL INJ 2MG/ML 2ML 2 MG/ML VIAL IV PRN (23:30)
[2019-12-04] VITALS (8 sets, daily range): BP systolic 147–184; BP diastolic 60–71
[2019-12-04 00:20] LABS: BASOPHILS % 0.5 % (0.0-1.0); EOSINOPHILS # (AUTO) 0.3 (0.0-0.4); EOSINOPHILS % 4.7 % (0.0-6.0); HEMATOCRIT 31.6 % (38.2-49.6); HEMOGLOBIN 10.9 g/dL (14.0-18.0); LYMPHOCYTES # (AUTO) 0.3 (1.0-3.2); LYMPHOCYTES % 5.5 % (18.0-39.1); MEAN CORPUSCULAR HEMOGLOBIN 29.7 pg (28-32); MEAN CORPUSCULAR HGB CONC 34.5 g/dL (31-35); MEAN CORPUSCULAR VOLUME 86.1 fL (81-99); MONOCYTES # (AUTO) 0.6 (0.2-0.8); MONOCYTES % 8.9 % (4.4-11.3); NEUTROPHILS # (AUTO) 4.9 (2.1-6.9); NEUTROPHILS % 79.6 % (38.7-80.0); PLATELET COUNT 179 x10e3/uL (140-360); RED BLOOD COUNT 3.67 x10e6/uL (4.3-5.7); RED CELL DISTRIBUTION WIDTH 14.6 % (11.7-14.4)
[2019-12-04 00:38] LABS: CREATINE KINASE 48 IU/L (30-200)
[2019-12-04 00:40] LABS: ALANINE AMINOTRANSFERASE 9 IU/L (0-55); ALBUMIN 3.7 g/dL (3.5-5.0); ALBUMIN/GLOBULIN RATIO 1.1 (0.8-2.0); ALKALINE PHOSPHATASE 39 IU/L (40-150); ANION GAP 12.8 mmol/L (8-16); BLOOD UREA NITROGEN 7 mg/dL (7-26); BUN/CREATININE RATIO 8 (6-25); CALCIUM 8.8 mg/dL (8.4-10.2); CARBON DIOXIDE 23 mmol/L (22-29); CHLORIDE 107 mmol/L (98-107); CREATININE, SERUM 0.83 mg/dL (0.72-1.25); EST GLOMERULAR FILTRATION RATE > 60 ML/MIN (60-); GLUCOSE 113 mg/dL (74-118); POTASSIUM 3.8 mmol/L (3.5-5.1); SODIUM 139 mmol/L (136-145)
[2019-12-04 07:50] LABS: BASOPHILS % 0.6 % (0.0-1.0); EOSINOPHILS # (AUTO) 0.3 (0.0-0.4); EOSINOPHILS % 5.4 % (0.0-6.0); HEMATOCRIT 30.9 % (38.2-49.6); HEMOGLOBIN 10.7 g/dL (14.0-18.0); LYMPHOCYTES # (AUTO) 0.3 (1.0-3.2); LYMPHOCYTES % 6.4 % (18.0-39.1); MEAN CORPUSCULAR HEMOGLOBIN 29.9 pg (28-32); MEAN CORPUSCULAR HGB CONC 34.6 g/dL (31-35); MEAN CORPUSCULAR VOLUME 86.3 fL (81-99); MONOCYTES # (AUTO) 0.6 (0.2-0.8); MONOCYTES % 10.6 % (4.4-11.3); NEUTROPHILS % 76.8 % (38.7-80.0); PLATELET COUNT 121 x10e3/uL (140-360); RED BLOOD COUNT 3.58 x10e6/uL (4.3-5.7); RED CELL DISTRIBUTION WIDTH 14.5 % (11.7-14.4)
[2019-12-04 08:09] LABS: ALANINE AMINOTRANSFERASE 6 IU/L (0-55); ALBUMIN 3.4 g/dL (3.5-5.0); ALBUMIN/GLOBULIN RATIO 1.4 (0.8-2.0); ALKALINE PHOSPHATASE 36 IU/L (40-150); ANION GAP 12.1 mmol/L (8-16); BLOOD UREA NITROGEN 6 mg/dL (7-26); BUN/CREATININE RATIO 8 (6-25); CALCIUM 8.3 mg/dL (8.4-10.2); CARBON DIOXIDE 25 mmol/L (22-29); CHLORIDE 107 mmol/L (98-107); CREATININE, SERUM 0.79 mg/dL (0.72-1.25); EST GLOMERULAR FILTRATION RATE > 60 ML/MIN (60-); GLUCOSE 96 mg/dL (74-118); POTASSIUM 3.1 mmol/L (3.5-5.1); SODIUM 141 mmol/L (136-145)
[2019-12-04 08:30] LABS: CREATINE KINASE MB 1.3 ng/mL (0-5.0)
[2019-12-04] MEDS ORDERED: HEPARIN SOD (PORCINE) 5,000 UNIT/ML VIAL SC ONE (08:30)
[2019-12-04 08:35] LABS: INR 1.02; PROTHROMBIN TIME 13.9 seconds (11.9-14.5)
[2019-12-04 08:36] LABS: PARTIAL THROMBOPLASTIN TIME 38.6 seconds (23.8-35.5)
[2019-12-04] MEDS ORDERED: HYDRALAZINE HCL 25 MG TAB PO PRN (08:45)
[2019-12-04] MEDS ORDERED: DEXTROSE 50% SYRINGE 50 ML IV PRN (08:45)
[2019-12-04] MEDS: INSULIN LISPRO 100 UNIT/1 ML 3ML VIAL SQ SCH ×8 (08:45→21:00)
[2019-12-04] MEDS: LISINOPRIL 10 MG TAB PO SCH (09:05)
[2019-12-04] MEDS ORDERED: HYDROCODONE/APAP 7.5MG-325MG 1 EA TAB PO PRN (09:15)
[2019-12-04] MEDS ORDERED: TRAMADOL HCL 50 MG TAB PO PRN (09:15)
[2019-12-04] MEDS ORDERED: POTASSIUM CHLORIDE 10MEQ EA PO ONE (09:15)
[2019-12-04] MEDS ORDERED: PANTOPRAZOLE SOD 40 MG TABEC PO ONE (10:00)
[2019-12-04] MEDS: SENNOSIDES 8.6 MG TAB PO SCH ×2 (11:07→16:19)
[2019-12-04 11:33] LABS: BILIRUBIN,URINE NEGATIVE (NEGATIVE); CLARITY,URINE CLEAR (CLEAR); COLOR,URINE YELLOW (YELLOW); KETONES,URINE NEGATIVE (NEGATIVE); LEUKOCYTE ESTERASE ,URINE NEGATIVE (NEGATIVE); NITRITE,URINE NEGATIVE (NEGATIVE); PROTEIN,URINE DIPSTICK NEGATIVE (NEGATIVE); URINE UROBILINOGEN 0.2 mg/dL (0.2 - 1)
[2019-12-04 11:39] LABS: BACTERIA,URINE FEW /HPF; EPITHELIAL CELLS,URINE RARE /LPF; RBC,URINE 0-5 /HPF (0-5); WBC,URINE (MAN) 0-5 /HPF (0-5)
[2019-12-04 16:41] LABS: CREATINE KINASE MB 1.3 ng/mL (0-5.0)
[2019-12-04] MEDS: TAMSULOSIN HCL 0.4 MG CAP PO SCH (21:00)
[2019-12-05] VITALS (8 sets, daily range): BP systolic 122–165; BP diastolic 58–64
[2019-12-05] MEDS: LISINOPRIL 10 MG TAB PO SCH (05:43)
[2019-12-05] MEDS: INSULIN LISPRO 100 UNIT/1 ML 3ML VIAL SQ SCH ×7 (07:30→22:20)
[2019-12-05] MEDS: PANTOPRAZOLE SOD 40 MG TABEC PO SCH (07:30)
[2019-12-05] MEDS: SENNOSIDES 8.6 MG TAB PO SCH ×2 (08:13→16:54)
[2019-12-05] MEDS ORDERED: BUPIVACAINE HCL 0.5% INJ 30 ML VIAL INJ ONE (08:22)
[2019-12-05 08:37] LABS: ANION GAP 13.8 mmol/L (8-16); BLOOD UREA NITROGEN 6 mg/dL (7-26); BUN/CREATININE RATIO 7 (6-25); CALCIUM 8.4 mg/dL (8.4-10.2); CARBON DIOXIDE 24 mmol/L (22-29); CHLORIDE 108 mmol/L (98-107); CREATININE, SERUM 0.82 mg/dL (0.72-1.25); EST GLOMERULAR FILTRATION RATE > 60 ML/MIN (60-); GLUCOSE 123 mg/dL (74-118); MAGNESIUM 1.9 MG/DL (1.3-2.1); PHOSPHORUS 3.7 MG/DL (2.3-4.7); POTASSIUM 3.8 mmol/L (3.5-5.1); SODIUM 142 mmol/L (136-145)
[2019-12-05] MEDS ORDERED: SODIUM CHLORIDE 0.9% 250ML 250 ML ONE ×2 (09:18→23:45)
[2019-12-05] MEDS ORDERED: VANCOMYCIN HCL 1 GM VIAL ONE (09:18)
[2019-12-05] MEDS ORDERED: HYDROCODONE/APAP 7.5MG-325MG 1 EA TAB PO PRN (10:45)
[2019-12-05] MEDS ORDERED: HYDROCODONE/APAP 5MG-325MG TAB PO PRN (10:45)
[2019-12-05] MEDS: ASPIRIN 325 MG TAB PO SCH (16:54)
[2019-12-05] MEDS ORDERED: ONDANSETRON HCL INJ 2MG/ML 2ML 2 MG/ML VIAL ONE (19:23)
[2019-12-05] MEDS ORDERED: LIDOCAINE HCL 2% LOCAL INJ 5 ML SDV VIAL INJ ONE (19:23)
[2019-12-05] MEDS ORDERED: DEXAMETHASONE SOD PHOS INJ 4 MG/ML VIAL ONE (19:23)
[2019-12-05] MEDS ORDERED: PROPOFOL IV EMULSION 10 MG/ML 20 ML VIAL ONE (19:23)
[2019-12-05] MEDS ORDERED: SEVOFLURANE INHAL SOLN 250 ML PEN BTL ONE (19:23)
[2019-12-05] MEDS ORDERED: KETAMINE HCL INJ 50 MG/ML 10 ML VIAL ONE (19:30)
[2019-12-05] MEDS ORDERED: FENTANYL CITRATE/PF 100MCG/2 ML INJ ONE (19:30)
[2019-12-05] MEDS: TAMSULOSIN HCL 0.4 MG CAP PO SCH (21:47)
[2019-12-05] MEDS: VANCOMYCIN 1GM/NS 250 ML 250 ML IV SCH (21:48)
[2019-12-06] VITALS: BP 148/61
[2019-12-06 05:09] LABS: BASOPHILS % 0.1 % (0.0-1.0); EOSINOPHILS # (AUTO) 0.1 (0.0-0.4); EOSINOPHILS % 1.3 % (0.0-6.0); HEMATOCRIT 29.4 % (38.2-49.6); HEMOGLOBIN 10.4 g/dL (14.0-18.0); LYMPHOCYTES # (AUTO) 0.4 (1.0-3.2); MEAN CORPUSCULAR HEMOGLOBIN 31.5 pg (28-32); MEAN CORPUSCULAR HGB CONC 35.4 g/dL (31-35); MEAN CORPUSCULAR VOLUME 89.1 fL (81-99); MONOCYTES # (AUTO) 0.8 (0.2-0.8); MONOCYTES % 11.5 % (4.4-11.3); NEUTROPHILS # (AUTO) 5.9 (2.1-6.9); NEUTROPHILS % 81.7 % (38.7-80.0); PLATELET COUNT 153 x10e3/uL (140-360); RED CELL DISTRIBUTION WIDTH 14.7 % (11.7-14.4)
[2019-12-06 05:18] VITALS: BP 159/70
[2019-12-06 05:31] LABS: ANION GAP 12.8 mmol/L (8-16); BLOOD UREA NITROGEN 11 mg/dL (7-26); BUN/CREATININE RATIO 14 (6-25); CALCIUM 8.2 mg/dL (8.4-10.2); CARBON DIOXIDE 24 mmol/L (22-29); CHLORIDE 108 mmol/L (98-107); EST GLOMERULAR FILTRATION RATE > 60 ML/MIN (60-); GLUCOSE 144 mg/dL (74-118); POTASSIUM 3.8 mmol/L (3.5-5.1); SODIUM 141 mmol/L (136-145)
[2019-12-06] MEDS: LISINOPRIL 10 MG TAB PO SCH (05:51)
[2019-12-06] MEDS: INSULIN LISPRO 100 UNIT/1 ML 3ML VIAL SQ SCH ×4 (07:30→11:30)
[2019-12-06 07:51] VITALS: BP 155/69
[2019-12-06 08:34] VITALS: BP 155/69
[2019-12-06] MEDS: SENNOSIDES 8.6 MG TAB PO SCH (08:45)
[2019-12-06] MEDS: ASPIRIN 325 MG TAB PO SCH (08:45)
[2019-12-06] MEDS: PANTOPRAZOLE SOD 40 MG TABEC PO SCH (08:45)
[2019-12-06] MEDS: VANCOMYCIN 1GM/NS 250 ML 250 ML IV SCH (08:45)
[2019-12-06] MEDS ORDERED: BISACODYL 5 MG TAB EC PO PRN (09:00)
[2019-12-06] MEDS ORDERED: MAGNESIUM HYDROXIDE 30 ML UDC PO PRN (09:00)
[2019-12-06] MEDS ORDERED: POLYETHYLENE GLYCOL 3350 17 GM PACK PO SCH (09:30)
[2019-12-06] MEDS ORDERED: BISACODYL 5 MG TAB EC PO ONE (09:30)
[2019-12-06] MEDS ORDERED: ONDANSETRON HCL 4 MG ORAL DISINTEGRATING TAB PO PRN (11:00)
[2019-12-06 11:49] VITALS: BP 135/59
== END 2019-12-06 14:25 | DRG 494 ==
LOC: ER 21:15 → ERHOLD 23:54 → MED/SURG 12-04 01:48
PROVIDERS: ADMIT Internal Medicine; ATTEND Internal Medicine
PROC: 0QSG04Z Reposition Right Tibia with Internal Fixation Device, Open Approach (ICD-10-PCS; principal; 2019-12-05 09:00)
DX: S82.141A Displaced bicondylar fracture of right tibia, initial encounter for closed fracture (principal); E11.8 Type 2 diabetes mellitus with unspecified complications; I10 Essential (primary) hypertension; E78.5 Hyperlipidemia, unspecified; Z68.39 Body mass index [BMI] 39.0-39.9, adult; G47.33 Obstructive sleep apnea (adult) (pediatric); N40.0 Benign prostatic hyperplasia without lower urinary tract symptoms; C61 Malignant neoplasm of prostate; E66.9 Obesity, unspecified; W19.XXXA Unspecified fall, initial encounter; Z11.59 Encounter for screening for other viral diseases
CPT/HCPCS: 36415; 71045; 76000; 80048; 80053; 81001; 82550; 82553; 82948; 83735; 84100; 84484; 85025; 85610; 85730; 86850; 86900; 93005; 97139; 99284; C1713; J1100; J1644; J2001; J2405; J3010; J3370; J7030; J7050; U0002

== ENCOUNTER 2020-02-21 19:59 | Inpatient (IN) | payer MEDICARE, OTHER ==
[~2020-02-21] VITALS: Ht 180.3 cm; Wt 130.7 kg
[2020-02-21 20:00] VITALS: BP 204/190
[2020-02-21] MEDS ORDERED: LISINOPRIL10 MG PO (21:47)
[2020-02-21] MEDS ORDERED: HYDRALAZINE HCL 20 MG/ML VIAL IV STA (21:57)
[2020-02-21] MEDS ORDERED: FUROSEMIDE INJ 10 MG/ML 4 ML VIAL IV ONE (22:00)
[2020-02-21] MEDS ORDERED: HYDRALAZINE HCL 20 MG/ML VIAL IV PRN (22:00)
[2020-02-21] MEDS ORDERED: DEXTROSE 50% SYRINGE 50 ML IV PRN (22:00)
[2020-02-21] MEDS ORDERED: ONDANSETRON HCL INJ 2MG/ML 2ML 2 MG/ML VIAL IV PRN (22:15)
[2020-02-21] MEDS: SIMVASTATIN 20 MG TAB PO SCH (22:45)
[2020-02-21] MEDS: LISINOPRIL 10 MG TAB PO SCH (22:56)
[2020-02-21] MEDS: ACETAMINOPHEN 325 MG TAB PO PRN (23:39)
[2020-02-22] VITALS (8 sets, daily range): BP systolic 113–160; BP diastolic 64–84
[2020-02-22 05:39] LABS: BASOPHILS % 0.6 % (0.0-1.0); EOSINOPHILS % 0.8 % (0.0-6.0); HEMATOCRIT 39.3 % (38.2-49.6); HEMOGLOBIN 12.7 g/dL (14.0-18.0); LYMPHOCYTES # (AUTO) 0.4 (1.0-3.2); LYMPHOCYTES % 7.2 % (18.0-39.1); MEAN CORPUSCULAR HEMOGLOBIN 27.1 pg (28-32); MEAN CORPUSCULAR HGB CONC 32.3 g/dL (31-35); MONOCYTES # (AUTO) 0.5 (0.2-0.8); MONOCYTES % 10.1 % (4.4-11.3); NEUTROPHILS # (AUTO) 3.9 (2.1-6.9); NEUTROPHILS % 80.9 % (38.7-80.0); PLATELET COUNT 166 x10e3/uL (140-360); RED BLOOD COUNT 4.68 x10e6/uL (4.3-5.7); RED CELL DISTRIBUTION WIDTH 13.2 % (11.7-14.4)
[2020-02-22] MEDS: LISINOPRIL 10 MG TAB PO SCH (06:00)
[2020-02-22 06:04] LABS: ANION GAP 12.2 mmol/L (8-16); BLOOD UREA NITROGEN 8 mg/dL (7-26); BUN/CREATININE RATIO 10 (6-25); CALCIUM 8.7 mg/dL (8.4-10.2); CARBON DIOXIDE 27 mmol/L (22-29); CHLORIDE 105 mmol/L (98-107); CREATININE, SERUM 0.82 mg/dL (0.72-1.25); EST GLOMERULAR FILTRATION RATE > 60 ML/MIN (60-); GLUCOSE 157 mg/dL (74-118); POTASSIUM 3.2 mmol/L (3.5-5.1); SODIUM 141 mmol/L (136-145)
[2020-02-22] MEDS: INSULIN LISPRO 100 UNIT/1 ML 3ML VIAL SQ SCH ×4 (07:30→19:50)
[2020-02-22 07:36] LABS: LYMPHOCYTES % (MANUAL) 6 % (19-48); MONOCYTES % (MANUAL) 8 % (3.4-9.0); NEUTROPHILS % (MANUAL) 86 % (40-74); PLATELET ESTIMATE ADEQUATE; PLATELET MORPHOLOGY COMMENT NORMAL; RBC MORPHOLOGY COMMENT NORMAL
[2020-02-22] MEDS: GLIMEPIRIDE 2 MG TAB PO SCH (07:48)
[2020-02-22] MEDS: NPH, HUMAN INSULIN ISOPHANE 100 UNIT/1 ML 3ML VIAL SQ SCH ×2 (08:22→16:30)
[2020-02-22] MEDS ORDERED: POTASSIUM CHLORIDE 10MEQ EA PO ONE (09:30)
[2020-02-22] MEDS ORDERED: FUROSEMIDE INJ 10 MG/ML 4 ML VIAL IV ONE (09:30)
[2020-02-22 15:04] LABS: FREE THYROXINE INDEX 2.3722 (1.4-3.8); THYROID STIMULATING HORMONE 1.225 uIU/mL (0.350-4.940)
[2020-02-22] MEDS ORDERED: BISACODYL 5 MG TAB EC PO PRN (20:00)
[2020-02-22] MEDS: TAMSULOSIN HCL 0.4 MG CAP PO SCH (20:01)
[2020-02-22] MEDS: SIMVASTATIN 20 MG TAB PO SCH (20:01)
[2020-02-23] VITALS (8 sets, daily range): BP systolic 112–146; BP diastolic 46–75
[2020-02-23] MEDS: LISINOPRIL 10 MG TAB PO SCH (04:58)
[2020-02-23 06:05] LABS: INR 0.96; PROTHROMBIN TIME 13.3 seconds (11.9-14.5)
[2020-02-23 06:06] LABS: PARTIAL THROMBOPLASTIN TIME 38.4 seconds (23.8-35.5)
[2020-02-23] MEDS: GLIMEPIRIDE 2 MG TAB PO SCH (07:30)
[2020-02-23] MEDS: NPH, HUMAN INSULIN ISOPHANE 100 UNIT/1 ML 3ML VIAL SQ SCH ×2 (07:30→16:43)
[2020-02-23] MEDS: INSULIN LISPRO 100 UNIT/1 ML 3ML VIAL SQ SCH ×4 (07:30→22:02)
[2020-02-23] MEDS: POTASSIUM CHLORIDE 10MEQ EA PO SCH (09:00)
[2020-02-23] MEDS: FUROSEMIDE INJ 10 MG/ML 4 ML VIAL IV SCH (10:00)
[2020-02-23] MEDS ORDERED: MAGNESIUM HYDROXIDE 30 ML UDC PO PRN (10:45)
[2020-02-23] MEDS ORDERED: BISACODYL 10 MG SUPP PR PRN (10:45)
[2020-02-23] MEDS: SENNA-S TABLET PO SCH ×2 (11:59→16:57)
[2020-02-23 12:11] LABS: BODY FLUID APPEARANCE SL.CLOUDY; BODY FLUID COLOR YELLOW; BODY FLUID TYPE PLEURAL
[2020-02-23 12:13] LABS: RBC,BODY FLUID 306 cells/uL; WBC,BODY FLUID 413 cells/uL
[2020-02-23 12:25] LABS: LYMPHOCYTES,BODY FLUID 59 %; MONO/MACROPHG,BODY FLUID 6 %; NEUTROPHILS,BODY FLUID 25 %; OTHER CELLS,BODY FLUID 10 %
[2020-02-23] MEDS: ENOXAPARIN SOD INJ 40 MG/0.4 ML SYR SC SCH (17:20)
[2020-02-23] MEDS: TAMSULOSIN HCL 0.4 MG CAP PO SCH (21:29)
[2020-02-23] MEDS: SIMVASTATIN 20 MG TAB PO SCH (21:29)
[2020-02-24] VITALS (8 sets, daily range): BP systolic 105–129; BP diastolic 59–65
[2020-02-24] MEDS: LISINOPRIL 10 MG TAB PO SCH (05:34)
[2020-02-24] MEDS: NPH, HUMAN INSULIN ISOPHANE 100 UNIT/1 ML 3ML VIAL SQ SCH ×2 (07:30→16:47)
[2020-02-24] MEDS: INSULIN LISPRO 100 UNIT/1 ML 3ML VIAL SQ SCH ×4 (08:30→21:14)
[2020-02-24] MEDS: GLIMEPIRIDE 2 MG TAB PO SCH (08:30)
[2020-02-24] MEDS: SENNA-S TABLET PO SCH ×2 (08:39→16:49)
[2020-02-24] MEDS: FUROSEMIDE INJ 10 MG/ML 4 ML VIAL IV SCH (08:39)
[2020-02-24] MEDS: POTASSIUM CHLORIDE 10MEQ EA PO SCH (08:40)
[2020-02-24 08:56] LABS: BASOPHILS % 0.5 % (0.0-1.0); EOSINOPHILS # (AUTO) 0.2 (0.0-0.4); EOSINOPHILS % 2.5 % (0.0-6.0); HEMATOCRIT 38.5 % (38.2-49.6); HEMOGLOBIN 12.3 g/dL (14.0-18.0); LYMPHOCYTES # (AUTO) 0.4 (1.0-3.2); MEAN CORPUSCULAR HEMOGLOBIN 27.2 pg (28-32); MEAN CORPUSCULAR HGB CONC 31.9 g/dL (31-35); MEAN CORPUSCULAR VOLUME 85.2 fL (81-99); MONOCYTES # (AUTO) 0.7 (0.2-0.8); MONOCYTES % 10.5 % (4.4-11.3); NEUTROPHILS # (AUTO) 5.1 (2.1-6.9); PLATELET COUNT 213 x10e3/uL (140-360); RED BLOOD COUNT 4.52 x10e6/uL (4.3-5.7); RED CELL DISTRIBUTION WIDTH 13.5 % (11.7-14.4)
[2020-02-24 09:20] LABS: ALBUMIN 3.2 g/dL (3.5-5.0); ALBUMIN/GLOBULIN RATIO 1.1 (0.8-2.0); ALKALINE PHOSPHATASE 44 IU/L (40-150); ANION GAP 15.7 mmol/L (8-16); BLOOD UREA NITROGEN 12 mg/dL (7-26); BUN/CREATININE RATIO 14 (6-25); CALCIUM 8.5 mg/dL (8.4-10.2); CARBON DIOXIDE 25 mmol/L (22-29); CHLORIDE 101 mmol/L (98-107); CREATININE, SERUM 0.83 mg/dL (0.72-1.25); EST GLOMERULAR FILTRATION RATE > 60 ML/MIN (60-); GLUCOSE 159 mg/dL (74-118); POTASSIUM 3.7 mmol/L (3.5-5.1); SODIUM 138 mmol/L (136-145)
[2020-02-24 09:41] LABS: ALANINE AMINOTRANSFERASE < 6 IU/L (0-55)
[2020-02-24] MEDS: ENOXAPARIN SOD INJ 40 MG/0.4 ML SYR SC SCH (16:47)
[2020-02-24] MEDS: TAMSULOSIN HCL 0.4 MG CAP PO SCH (21:11)
[2020-02-24] MEDS: SIMVASTATIN 20 MG TAB PO SCH (21:11)
[2020-02-25] VITALS (7 sets, daily range): BP systolic 99–160; BP diastolic 57–77
[2020-02-25] MEDS: LISINOPRIL 10 MG TAB PO SCH (05:23)
[2020-02-25] MEDS: ACETAMINOPHEN 325 MG TAB PO PRN ×2 (05:24→20:34)
[2020-02-25] MEDS: INSULIN LISPRO 100 UNIT/1 ML 3ML VIAL SQ SCH ×4 (07:30→20:39)
[2020-02-25] MEDS: POTASSIUM CHLORIDE 10MEQ EA PO SCH (09:00)
[2020-02-25] MEDS: FUROSEMIDE INJ 10 MG/ML 4 ML VIAL IV SCH (09:31)
[2020-02-25] MEDS: PIPER-TAZ 3.375 GM 50 ML IV SCH ×2 (09:31→17:56)
[2020-02-25] MEDS: SENNA-S TABLET PO SCH ×2 (09:34→17:56)
[2020-02-25] MEDS ORDERED: SODIUM CHLORIDE 0.9% 50ML 50 ML ONE (09:50)
[2020-02-25] MEDS: NPH, HUMAN INSULIN ISOPHANE 100 UNIT/1 ML 3ML VIAL SQ SCH ×2 (13:30→16:30)
[2020-02-25] MEDS: ENOXAPARIN SOD INJ 40 MG/0.4 ML SYR SC SCH (17:56)
[2020-02-25] MEDS: TAMSULOSIN HCL 0.4 MG CAP PO SCH (20:34)
[2020-02-25] MEDS: SIMVASTATIN 20 MG TAB PO SCH (20:34)
[2020-02-25] MEDS ORDERED: VANCOMYCIN 1GM/NS 250 ML 250 ML IV ONE (23:00)
[2020-02-26] VITALS (8 sets, daily range): BP systolic 106–151; BP diastolic 49–65
[2020-02-26] MEDS: PIPER-TAZ 3.375 GM 50 ML IV SCH ×3 (01:35→18:27)
[2020-02-26] MEDS: LISINOPRIL 10 MG TAB PO SCH (05:24)
[2020-02-26] MEDS: INSULIN LISPRO 100 UNIT/1 ML 3ML VIAL SQ SCH ×4 (07:30→21:00)
[2020-02-26] MEDS: NPH, HUMAN INSULIN ISOPHANE 100 UNIT/1 ML 3ML VIAL SQ SCH ×2 (07:30→18:27)
[2020-02-26] MEDS ORDERED: GLIMEPIRIDE 2 MG TAB PO SCH (08:00)
[2020-02-26 08:25] LABS: BASOPHILS # (AUTO) 0.1 (0.0-0.1); BASOPHILS % 0.3 % (0.0-1.0); EOSINOPHILS % 0.1 % (0.0-6.0); HEMATOCRIT 35.9 % (38.2-49.6); HEMOGLOBIN 11.4 g/dL (14.0-18.0); LYMPHOCYTES # (AUTO) 0.5 (1.0-3.2); LYMPHOCYTES % 2.9 % (18.0-39.1); MEAN CORPUSCULAR HEMOGLOBIN 27.1 pg (28-32); MEAN CORPUSCULAR HGB CONC 31.8 g/dL (31-35); MEAN CORPUSCULAR VOLUME 85.3 fL (81-99); MONOCYTES # (AUTO) 1.2 (0.2-0.8); MONOCYTES % 7.2 % (4.4-11.3); NEUTROPHILS # (AUTO) 14.9 (2.1-6.9); NEUTROPHILS % 88.8 % (38.7-80.0); PLATELET COUNT 218 x10e3/uL (140-360); RED BLOOD COUNT 4.21 x10e6/uL (4.3-5.7); RED CELL DISTRIBUTION WIDTH 13.7 % (11.7-14.4)
[2020-02-26 08:34] LABS: ANION GAP 13.6 mmol/L (8-16); BLOOD UREA NITROGEN 16 mg/dL (7-26); BUN/CREATININE RATIO 18 (6-25); CALCIUM 8.1 mg/dL (8.4-10.2); CARBON DIOXIDE 24 mmol/L (22-29); CHLORIDE 101 mmol/L (98-107); CREATININE, SERUM 0.89 mg/dL (0.72-1.25); EST GLOMERULAR FILTRATION RATE > 60 ML/MIN (60-); GLUCOSE 67 mg/dL (74-118); POTASSIUM 3.6 mmol/L (3.5-5.1); SODIUM 135 mmol/L (136-145)
[2020-02-26] MEDS: POTASSIUM CHLORIDE 10MEQ EA PO SCH (10:08)
[2020-02-26] MEDS: SENNA-S TABLET PO SCH ×2 (10:08→18:27)
[2020-02-26] MEDS ORDERED: SODIUM CHLORIDE 0.9% 250ML 250 ML ONE (10:53)
[2020-02-26] MEDS ORDERED: VANCOMYCIN 1GM/NS 250 ML 250 ML IV SCH (11:00)
[2020-02-26] MEDS: ENOXAPARIN SOD INJ 40 MG/0.4 ML SYR SC SCH (18:27)
[2020-02-26 21:39] LABS: CLARITY,URINE SL CLOUDY (CLEAR); COLOR,URINE YELLOW (YELLOW); KETONES,URINE NEGATIVE (NEGATIVE); LEUKOCYTE ESTERASE ,URINE SMALL (NEGATIVE); NITRITE,URINE NEGATIVE (NEGATIVE); PROTEIN,URINE DIPSTICK NEGATIVE (NEGATIVE); URINE UROBILINOGEN 0.2 mg/dL (0.2 - 1)
[2020-02-26] MEDS: SIMVASTATIN 20 MG TAB PO SCH (21:39)
[2020-02-26] MEDS: TAMSULOSIN HCL 0.4 MG CAP PO SCH (21:39)
[2020-02-26 21:46] LABS: BACTERIA,URINE RARE /HPF; EPITHELIAL CELLS,URINE FEW /LPF; RBC,URINE 0-5 /HPF (0-5); WBC,URINE (MAN) 0-5 /HPF (0-5)
[2020-02-27] VITALS (8 sets, daily range): BP systolic 125–140; BP diastolic 56–63
[2020-02-27] MEDS: PIPER-TAZ 3.375 GM 50 ML IV SCH ×3 (01:57→17:12)
[2020-02-27] MEDS: LISINOPRIL 10 MG TAB PO SCH (05:45)
[2020-02-27 06:15] LABS: BASOPHILS % 0.3 % (0.0-1.0); EOSINOPHILS # (AUTO) 0.1 (0.0-0.4); EOSINOPHILS % 0.4 % (0.0-6.0); HEMATOCRIT 33.8 % (38.2-49.6); HEMOGLOBIN 11.1 g/dL (14.0-18.0); LYMPHOCYTES # (AUTO) 0.4 (1.0-3.2); LYMPHOCYTES % 2.8 % (18.0-39.1); MEAN CORPUSCULAR HEMOGLOBIN 27.6 pg (28-32); MEAN CORPUSCULAR HGB CONC 32.8 g/dL (31-35); MEAN CORPUSCULAR VOLUME 84.1 fL (81-99); MONOCYTES % 7.2 % (4.4-11.3); NEUTROPHILS # (AUTO) 11.8 (2.1-6.9); NEUTROPHILS % 88.9 % (38.7-80.0); PLATELET COUNT 224 x10e3/uL (140-360); RED BLOOD COUNT 4.02 x10e6/uL (4.3-5.7); RED CELL DISTRIBUTION WIDTH 13.5 % (11.7-14.4)
[2020-02-27 06:42] LABS: ANION GAP 12.7 mmol/L (8-16); BLOOD UREA NITROGEN 15 mg/dL (7-26); BUN/CREATININE RATIO 19 (6-25); CALCIUM 8.2 mg/dL (8.4-10.2); CARBON DIOXIDE 24 mmol/L (22-29); CHLORIDE 102 mmol/L (98-107); CREATININE, SERUM 0.77 mg/dL (0.72-1.25); EST GLOMERULAR FILTRATION RATE > 60 ML/MIN (60-); GLUCOSE 85 mg/dL (74-118); POTASSIUM 3.7 mmol/L (3.5-5.1); SODIUM 135 mmol/L (136-145)
[2020-02-27] MEDS: NPH, HUMAN INSULIN ISOPHANE 100 UNIT/1 ML 3ML VIAL SQ SCH ×2 (07:30→16:30)
[2020-02-27] MEDS: INSULIN LISPRO 100 UNIT/1 ML 3ML VIAL SQ SCH ×4 (07:30→21:30)
[2020-02-27] MEDS: POTASSIUM CHLORIDE 10MEQ EA PO SCH (08:14)
[2020-02-27] MEDS: SENNA-S TABLET PO SCH ×2 (08:14→17:12)
[2020-02-27] MEDS ORDERED: LIDOCAINE HCL 2% JELLY 5 ML TUBE ONE (12:13)
[2020-02-27] MEDS ORDERED: PROPOFOL IV EMULSION 10 MG/ML 20 ML VIAL ONE (12:13)
[2020-02-27] MEDS ORDERED: LIDOCAINE HCL 2% LOCAL INJ 5 ML SDV VIAL INJ ONE (12:13)
[2020-02-27] MEDS ORDERED: SEVOFLURANE INHAL SOLN 250 ML PEN BTL ONE (12:13)
[2020-02-27] MEDS ORDERED: LIDOCAINE HCL 4% 50 ML BTL ONE (14:01)
[2020-02-27] MEDS ORDERED: LIDOCAINE HCL 2% 30 ML TUBE ONE (14:01)
[2020-02-27] MEDS: ENOXAPARIN SOD INJ 40 MG/0.4 ML SYR SC SCH (17:12)
[2020-02-27] MEDS: SIMVASTATIN 20 MG TAB PO SCH (21:30)
[2020-02-27] MEDS: TAMSULOSIN HCL 0.4 MG CAP PO SCH (21:30)
[2020-02-28] VITALS (8 sets, daily range): BP systolic 133–156; BP diastolic 55–73
[2020-02-28] MEDS: PIPER-TAZ 3.375 GM 50 ML IV SCH ×4 (01:12→20:34)
[2020-02-28] MEDS: LISINOPRIL 10 MG TAB PO SCH (05:54)
[2020-02-28] MEDS: NPH, HUMAN INSULIN ISOPHANE 100 UNIT/1 ML 3ML VIAL SQ SCH ×2 (07:30→16:30)
[2020-02-28] MEDS: INSULIN LISPRO 100 UNIT/1 ML 3ML VIAL SQ SCH ×4 (07:30→21:00)
[2020-02-28] MEDS: SENNA-S TABLET PO SCH ×2 (09:38→16:48)
[2020-02-28] MEDS: POTASSIUM CHLORIDE 10MEQ EA PO SCH (09:38)
[2020-02-28] MEDS: ENOXAPARIN SOD INJ 40 MG/0.4 ML SYR SC SCH (16:48)
[2020-02-28] MEDS: SIMVASTATIN 20 MG TAB PO SCH (20:34)
[2020-02-28] MEDS: TAMSULOSIN HCL 0.4 MG CAP PO SCH (20:34)
[2020-02-29] VITALS (8 sets, daily range): BP systolic 122–155; BP diastolic 59–70
[2020-02-29] MEDS: LISINOPRIL 10 MG TAB PO SCH (06:07)
[2020-02-29 06:13] LABS: BASOPHILS % 0.6 % (0.0-1.0); EOSINOPHILS # (AUTO) 0.2 (0.0-0.4); EOSINOPHILS % 2.4 % (0.0-6.0); HEMATOCRIT 34.4 % (38.2-49.6); HEMOGLOBIN 10.9 g/dL (14.0-18.0); LYMPHOCYTES # (AUTO) 0.3 (1.0-3.2); LYMPHOCYTES % 4.2 % (18.0-39.1); MEAN CORPUSCULAR HGB CONC 31.7 g/dL (31-35); MEAN CORPUSCULAR VOLUME 85.4 fL (81-99); MONOCYTES # (AUTO) 0.7 (0.2-0.8); MONOCYTES % 11.7 % (4.4-11.3); NEUTROPHILS % 80.6 % (38.7-80.0); PLATELET COUNT 250 x10e3/uL (140-360); RED BLOOD COUNT 4.03 x10e6/uL (4.3-5.7); RED CELL DISTRIBUTION WIDTH 13.2 % (11.7-14.4)
[2020-02-29 06:51] LABS: ANION GAP 12.8 mmol/L (8-16); BLOOD UREA NITROGEN 12 mg/dL (7-26); BUN/CREATININE RATIO 16 (6-25); CALCIUM 8.1 mg/dL (8.4-10.2); CARBON DIOXIDE 26 mmol/L (22-29); CHLORIDE 102 mmol/L (98-107); CREATININE, SERUM 0.74 mg/dL (0.72-1.25); EST GLOMERULAR FILTRATION RATE > 60 ML/MIN (60-); GLUCOSE 88 mg/dL (74-118); POTASSIUM 3.8 mmol/L (3.5-5.1); SODIUM 137 mmol/L (136-145)
[2020-02-29 08:56] LABS: EOSINOPHILS % (MANUAL) 3 % (0-7); LYMPHOCYTES % (MANUAL) 1 % (19-48); MONOCYTES % (MANUAL) 13 % (3.4-9.0); NEUTROPHILS % (MANUAL) 83 % (40-74); PLATELET ESTIMATE ADEQUATE; PLATELET MORPHOLOGY COMMENT NORMAL; RBC MORPHOLOGY COMMENT NORMAL
[2020-02-29] MEDS: PIPER-TAZ 3.375 GM 50 ML IV SCH (09:02)
[2020-02-29] MEDS: SENNA-S TABLET PO SCH ×2 (09:05→16:32)
[2020-02-29] MEDS: INSULIN LISPRO 100 UNIT/1 ML 3ML VIAL SQ SCH ×4 (12:27→20:37)
[2020-02-29] MEDS: NPH, HUMAN INSULIN ISOPHANE 100 UNIT/1 ML 3ML VIAL SQ SCH ×2 (12:30→16:39)
[2020-02-29] MEDS: POTASSIUM CHLORIDE 10MEQ EA PO SCH (12:33)
[2020-02-29] MEDS: SIMVASTATIN 20 MG TAB PO SCH (20:37)
[2020-02-29] MEDS: TAMSULOSIN HCL 0.4 MG CAP PO SCH (20:37)
[2020-03-01] VITALS (8 sets, daily range): BP systolic 123–146; BP diastolic 56–74
[2020-03-01] MEDS: LISINOPRIL 10 MG TAB PO SCH (05:57)
[2020-03-01] MEDS: INSULIN LISPRO 100 UNIT/1 ML 3ML VIAL SQ SCH ×4 (07:30→21:54)
[2020-03-01] MEDS: POTASSIUM CHLORIDE 10MEQ EA PO SCH (11:26)
[2020-03-01] MEDS: SENNA-S TABLET PO SCH ×2 (11:26→17:32)
[2020-03-01] MEDS: CHOLECALCIFEROL 1,000 UNIT TAB PO SCH (11:28)
[2020-03-01] MEDS: ASCORBIC ACID 500 MG TAB PO SCH ×2 (11:28→17:30)
[2020-03-01] MEDS: ENOXAPARIN SOD INJ 40 MG/0.4 ML SYR SC SCH (17:31)
[2020-03-01] MEDS: NPH, HUMAN INSULIN ISOPHANE 100 UNIT/1 ML 3ML VIAL SQ SCH (18:07)
[2020-03-01] MEDS: TAMSULOSIN HCL 0.4 MG CAP PO SCH (21:53)
[2020-03-01] MEDS: SIMVASTATIN 20 MG TAB PO SCH (21:53)
[2020-03-02] VITALS (7 sets, daily range): BP systolic 128–145; BP diastolic 56–67
[2020-03-02] MEDS: LISINOPRIL 10 MG TAB PO SCH (06:00)
[2020-03-02 06:20] LABS: BASOPHILS % 0.6 % (0.0-1.0); EOSINOPHILS # (AUTO) 0.1 (0.0-0.4); EOSINOPHILS % 1.6 % (0.0-6.0); HEMATOCRIT 35.3 % (38.2-49.6); HEMOGLOBIN 11.1 g/dL (14.0-18.0); LYMPHOCYTES # (AUTO) 0.4 (1.0-3.2); LYMPHOCYTES % 5.2 % (18.0-39.1); MEAN CORPUSCULAR HEMOGLOBIN 27.3 pg (28-32); MEAN CORPUSCULAR HGB CONC 31.4 g/dL (31-35); MEAN CORPUSCULAR VOLUME 86.7 fL (81-99); MONOCYTES # (AUTO) 0.7 (0.2-0.8); MONOCYTES % 10.1 % (4.4-11.3); NEUTROPHILS # (AUTO) 5.6 (2.1-6.9); NEUTROPHILS % 82.1 % (38.7-80.0); PLATELET COUNT 261 x10e3/uL (140-360); RED BLOOD COUNT 4.07 x10e6/uL (4.3-5.7); RED CELL DISTRIBUTION WIDTH 13.2 % (11.7-14.4)
[2020-03-02 06:58] LABS: ANION GAP 11.2 mmol/L (8-16); BLOOD UREA NITROGEN 10 mg/dL (7-26); BUN/CREATININE RATIO 14 (6-25); CALCIUM 8.3 mg/dL (8.4-10.2); CARBON DIOXIDE 28 mmol/L (22-29); CHLORIDE 103 mmol/L (98-107); CREATININE, SERUM 0.73 mg/dL (0.72-1.25); EST GLOMERULAR FILTRATION RATE > 60 ML/MIN (60-); GLUCOSE 83 mg/dL (74-118); POTASSIUM 4.2 mmol/L (3.5-5.1); SODIUM 138 mmol/L (136-145)
[2020-03-02] MEDS: INSULIN LISPRO 100 UNIT/1 ML 3ML VIAL SQ SCH ×4 (07:30→21:00)
[2020-03-02] MEDS: POTASSIUM CHLORIDE 10MEQ EA PO SCH (10:00)
[2020-03-02] MEDS: CHOLECALCIFEROL 1,000 UNIT TAB PO SCH (10:01)
[2020-03-02] MEDS: ASCORBIC ACID 500 MG TAB PO SCH ×2 (10:01→17:53)
[2020-03-02] MEDS: SENNA-S TABLET PO SCH ×2 (10:01→17:54)
[2020-03-02] MEDS: LEVOFLOXACIN 500 MG TAB PO SCH (10:30)
[2020-03-02] MEDS: NPH, HUMAN INSULIN ISOPHANE 100 UNIT/1 ML 3ML VIAL SQ SCH ×2 (11:08→16:30)
[2020-03-02] MEDS ORDERED: IBUPROFEN 200 MG TAB PO PRN (14:30)
[2020-03-02] MEDS: ENOXAPARIN SOD INJ 40 MG/0.4 ML SYR SC SCH (17:53)
[2020-03-02] MEDS: TAMSULOSIN HCL 0.4 MG CAP PO SCH (20:57)
[2020-03-02] MEDS: SIMVASTATIN 20 MG TAB PO SCH (20:57)
[2020-03-03] VITALS (7 sets, daily range): BP systolic 110–139; BP diastolic 53–60
[2020-03-03] MEDS: LISINOPRIL 10 MG TAB PO SCH (06:55)
[2020-03-03] MEDS: INSULIN LISPRO 100 UNIT/1 ML 3ML VIAL SQ SCH (07:30)
[2020-03-03] MEDS: POTASSIUM CHLORIDE 10MEQ EA PO SCH (09:58)
[2020-03-03] MEDS: ASCORBIC ACID 500 MG TAB PO SCH (09:58)
[2020-03-03] MEDS: SENNA-S TABLET PO SCH (09:58)
[2020-03-03] MEDS: LEVOFLOXACIN 500 MG TAB PO SCH (09:59)
[2020-03-03] MEDS: CHOLECALCIFEROL 1,000 UNIT TAB PO SCH (09:59)
[2020-03-03] MEDS: NPH, HUMAN INSULIN ISOPHANE 100 UNIT/1 ML 3ML VIAL SQ SCH ×2 (18:06→18:07)
[2020-03-03] MEDS ORDERED: ONDANSETRON HCL 4 MG ORAL DISINTEGRATING TAB PO PRN (18:30)
== END 2020-03-03 18:19 | DRG 194 ==
LOC: MED/SURG3 21:14
PROVIDERS: ADMIT Internal Medicine; ATTEND Internal Medicine
PROC: 0W9B3ZZ Drainage of Left Pleural Cavity, Percutaneous Approach (ICD-10-PCS; 2020-02-23)
PROC: 0B9M8ZX Drainage of Bilateral Lungs, Via Natural or Artificial Opening Endoscopic, Diagnostic (ICD-10-PCS; principal; 2020-02-27 14:30)
DX: J18.9 Pneumonia, unspecified organism (principal); Z68.41 Body mass index [BMI] 40.0-44.9, adult; I31.3 Pericardial effusion (noninflammatory); J90 Pleural effusion, not elsewhere classified; E66.01 Morbid (severe) obesity due to excess calories; I89.0 Lymphedema, not elsewhere classified; D64.9 Anemia, unspecified; E87.6 Hypokalemia; I11.0 Hypertensive heart disease with heart failure; I50.9 Heart failure, unspecified; Z85.46 Personal history of malignant neoplasm of prostate; M14.672 Charcot's joint, left ankle and foot; E11.9 Type 2 diabetes mellitus without complications; I16.0 Hypertensive urgency; Z20.822 Contact with and (suspected) exposure to COVID-19
CPT/HCPCS: 31622; 32555; 36415; 71046; 71250; 74470; 76604; 76870; 78582; 80048; 80053; 81001; 82306; 82607; 82746; 82945; 82948; 83615; 83880; 84157; 84311; 84436; 84443; 84479; 85025; 85610; 85730; 87040; 87070; 87071; 87075; 87086; 87102; 87109; 87110; 87116; 87205; 87206; 88112; 88305; 88312; 89051; 93005; 93306; 93976; 94660; 96367; 96372; 97139; J0360; J1650; J1940; J2001; J2405; J2543; J3370; J7050; U0002

== ENCOUNTER 2020-04-29 10:38 | Emergency (ER) | payer MEDICARE, OTHER ==
[~2020-04-29] VITALS: Ht 180.3 cm; Wt 130.6 kg
[~2020-04-29 10:38] MED LIST changes: +LISINOPRIL10 MG PO
[2020-04-29 11:13] LABS: BASOPHILS % 0.7 % (0.0-1.0); EOSINOPHILS # (AUTO) 0.2 (0.0-0.4); HEMATOCRIT 36.8 % (38.2-49.6); LYMPHOCYTES # (AUTO) 0.4 (1.0-3.2); LYMPHOCYTES % 6.8 % (18.0-39.1); MEAN CORPUSCULAR HEMOGLOBIN 27.1 pg (28-32); MEAN CORPUSCULAR HGB CONC 32.6 g/dL (31-35); MEAN CORPUSCULAR VOLUME 83.1 fL (81-99); MONOCYTES # (AUTO) 0.5 (0.2-0.8); MONOCYTES % 8.6 % (4.4-11.3); NEUTROPHILS # (AUTO) 4.5 (2.1-6.9); NEUTROPHILS % 80.7 % (38.7-80.0); PLATELET COUNT 257 x10e3/uL (140-360); RED BLOOD COUNT 4.43 x10e6/uL (4.3-5.7)
[2020-04-29 11:27] LABS: ALANINE AMINOTRANSFERASE 11 IU/L (0-55); ALBUMIN 3.4 g/dL (3.5-5.0); ALKALINE PHOSPHATASE 48 IU/L (40-150); ANION GAP 13.9 mmol/L (8-16); BLOOD UREA NITROGEN 13 mg/dL (7-26); BUN/CREATININE RATIO 17 (6-25); CALCIUM 8.6 mg/dL (8.4-10.2); CARBON DIOXIDE 24 mmol/L (22-29); CHLORIDE 106 mmol/L (98-107); CREATININE, SERUM 0.77 mg/dL (0.72-1.25); EST GLOMERULAR FILTRATION RATE > 60 ML/MIN (60-); GLUCOSE 136 mg/dL (74-118); POTASSIUM 3.9 mmol/L (3.5-5.1); SODIUM 140 mmol/L (136-145)
[2020-04-29 13:12] VITALS: BP 134/76
== END 2020-04-29 13:13 | disposition home or self-care (01) ==
LOC: ER 10:46
DX: R06.00 Dyspnea, unspecified (principal); R94.31 Abnormal electrocardiogram [ECG] [EKG]; E11.65 Type 2 diabetes mellitus with hyperglycemia; I10 Essential (primary) hypertension; E78.5 Hyperlipidemia, unspecified; K21.9 Gastro-esophageal reflux disease without esophagitis; G47.30 Sleep apnea, unspecified; Z85.46 Personal history of malignant neoplasm of prostate; Z20.822 Contact with and (suspected) exposure to COVID-19
CPT/HCPCS: 36415; 71045; 80053; 83880; 84484; 85025; 93005; 99284; U0002